=== PATIENT | male | born 1970 | race Two or more races ===

== ENCOUNTER 2019-02-05 00:17 | Emergency (ER) | payer MEDICARE ==
[~2019-02-05] VITALS: Ht 180.3 cm; Wt 112.9 kg
--- NOTE | 2019-02-05 00:50 | NUR ---
BIBS WALKED IN TO ER, TO ER BED 11. AAOX4. NO RESP DISTRESS NOTED. AMBULATORY. CAME DEPRESSION ANS STATES "I WAS VERY EMOTIONAL, I THOUGHT OF JUMPING OVER THE BRIDGE". PT DENIES HI. PT CAME IN SEEKING FOR VOLUNTARY ADMISSION TO PSYCHIATRIC INPATIENT. PT IS STRIPPED OFF CLOTHING AND PLACED ON GOWN W/ ALL BELONGINGS AND PLACE IN LOCKER LOCATED IN THE UTILITY ROOM. MD WAS AT BEDSIDE FOR EVAL. ORDER RECEIVED, NOTED AND CARRIED OUT. 1:1 AT BEDSIDE.
[2019-02-05 01:52] LABS: BASOPHILS % (AUTO) 0.5 % (0.0-2.0); EOSINOPHILS % (AUTO) 1.9 % (0.0-6.0); HEMATOCRIT 39 % (39-51); HEMOGLOBIN 13.6 g/dL (13.5-17.5); LYMPHOCYTES # (AUTO) 2.4 /CMM (0.8-4.8); LYMPHOCYTES % (AUTO) 26.9 % (20.0-44.0); MEAN CORPUSCULAR HGB CONC 35 g/dl (31.0-36.0); MEAN CORPUSCULAR VOLUME 92 fL (80-96); MONOCYTES # (AUTO) 0.7 /CMM (0.1-1.30); MONOCYTES % (AUTO) 7.8 % (2.0-12.0); NEUTROPHILS # (AUTO) 5.5 /CMM (1.8-8.9); NEUTROPHILS % (AUTO) 62.9 % (43.0-81.0); PLATELET COUNT (AUTO) 206 /CMM (150-450); WHITE BLOOD COUNT (AUTO) 8.8 K/uL (4.3-11.0)
[2019-02-05 01:58] LABS: APPEARANCE,URINE Clear (CLEAR); BILIRUBIN,URINE Negative (NEGATIVE); BLOOD, URINE Moderate Ery/uL (NEGATIVE); COLOR,URINE Yellow (YELLOW); KETONES,URINE Negative (NEGATIVE); LEUKOCYTE ESTERASE ,URINE Negative (NEGATIVE); NITRITE, URINE Negative (NEGATIVE); PROTEIN,URINE >=300 mg/dl (NEGATIVE); UGLUCOSE Negative (NEGATIVE); UROBILINOGEN,URINE 0.2 EU/dL (0.2)
[2019-02-05 02:03] LABS: CALCIUM, SERUM 9.2 mg/dL (8.5-10.1); CARBON DIOXIDE 28 mmol/L (21-32); CHLORIDE 100 mmol/L (98-107); CREATININE 1.5 mg/dL (0.6-1.3); GLUCOSE 177 mg/dL (74-106); POTASSIUM 4.7 mmol/L (3.5-5.1); SODIUM SERUM 135 mmol/L (136-145); UREA NITROGEN, BLOOD 22 mg/dL (7-18)
[2019-02-05 02:10] LABS: ACETAMINOPHEN 0 ug/ml (10-30); ALANINE AMINOTRANSFERASE 18 U/L (12-78); ALBUMIN 3.6 g/dL (3.4-5.0); ALCOHOL, BLOOD < 3 mg/dL (0-0); ALKALINE PHOSPHATASE 115 U/L (46-116); ASPARTATE AMINOTRANSFERASE 22 U/L (15-37); BILIRUBIN,DIRECT 0.1 mg/dL (0.0-0.2); BILIRUBIN,TOTAL 0.5 mg/dL (0.2-1.0); SALICYLATE 3.6 mg/dL (2.8-20.0); TOTAL PROTEIN, SERUM 7.9 g/dL (6.4-8.2)
[2019-02-05 02:34] LABS: BACTERIA,URINE Few /HPF (None Seen); RBC,URINE 21-50 /HPF (0-2); SQUAMOUS EPITHELIAL CELL,UR Rare /HPF (None Seen)
--- NOTE | 2019-02-05 04:33 | NUR ---
CLINICALS FAXED TO [facility]. AWAITING CALLBACK.
--- NOTE | 2019-02-05 06:04 | NUR ---
pt in bed sleeping comfortable. no distress noted. sitter at bedside
--- NOTE | 2019-02-05 06:44 | NUR ---
ACCEPTED TO [facility]. # FOR REPORT [phone]. UNIT 2
--- NOTE | 2019-02-05 06:49 | NUR ---
[facility] ETA:[id number]
--- NOTE | 2019-02-05 07:31 | NUR ---
REPORT GIVEN TO KORINA RODRIGUEZ FOR [facility] AT [facility] UNIT 2
--- NOTE | 2019-02-05 07:43 | NUR ---
REPORT GIVEN TO EMT TRANSPORT.
[2019-02-05 07:45] VITALS: BP 163/81
== END 2019-02-05 07:44 ==
LOC: ER 00:35
DX: R45.851 Suicidal ideations (principal); I10 Essential (primary) hypertension; E11.9 Type 2 diabetes mellitus without complications; F17.200 Nicotine dependence, unspecified, uncomplicated; F20.9 Schizophrenia, unspecified; Z88.8 Allergy status to other drugs, medicaments and biological substances; Z59.0 Homelessness
CPT/HCPCS: 36415; 80048; 80076; 80305; 80307; 80329; 81001; 85025; 87086; 99285; G0480; 81000-TC

== ENCOUNTER 2019-03-15 20:15 | Emergency (ER) | payer MEDICARE, OTHER ==
[~2019-03-15] VITALS: Ht 180.3 cm; Wt 113.4 kg
--- NOTE | 2019-03-15 21:11 | NUR ---
CALLED PT IN WAITING ROOM. NO RESPONSE.
[2019-03-15 23:20] LABS: APPEARANCE,URINE Clear (CLEAR); BILIRUBIN,URINE Negative (NEGATIVE); BLOOD, URINE Small Ery/uL (NEGATIVE); COLOR,URINE Yellow (YELLOW); KETONES,URINE Negative (NEGATIVE); LEUKOCYTE ESTERASE ,URINE Negative (NEGATIVE); NITRITE, URINE Negative (NEGATIVE); PH,URINE 5.5 (5.0-8.0); PROTEIN,URINE >=300 mg/dl (NEGATIVE); UGLUCOSE Negative (NEGATIVE); UROBILINOGEN,URINE 0.2 EU/dL (0.2)
[2019-03-15 23:25] LABS: BASOPHILS # (AUTO) 0.1 /CMM (0.0-0.2); BASOPHILS % (AUTO) 0.8 % (0.0-2.0); EOSINOPHILS % (AUTO) 1.6 % (0.0-6.0); HEMATOCRIT 37 % (39-51); HEMOGLOBIN 12.6 g/dL (13.5-17.5); LYMPHOCYTES # (AUTO) 2.1 /CMM (0.8-4.8); LYMPHOCYTES % (AUTO) 25.5 % (20.0-44.0); MEAN CORPUSCULAR HGB CONC 35 g/dl (31.0-36.0); MEAN CORPUSCULAR VOLUME 90 fL (80-96); MONOCYTES # (AUTO) 0.5 /CMM (0.1-1.30); MONOCYTES % (AUTO) 6.1 % (2.0-12.0); NEUTROPHILS # (AUTO) 5.4 /CMM (1.8-8.9); PLATELET COUNT (AUTO) 198 /CMM (150-450); RED BLOOD CELL COUNT(AUTO) 4.04 MIL/uL (4.5-6.0); WHITE BLOOD COUNT (AUTO) 8.2 K/uL (4.3-11.0)
[2019-03-15 23:32] LABS: CALCIUM, SERUM 8.7 mg/dL (8.5-10.1); CARBON DIOXIDE 24 mmol/L (21-32); CHLORIDE 103 mmol/L (98-107); CREATININE 1.5 mg/dL (0.6-1.3); GLUCOSE 149 mg/dL (74-106); POTASSIUM 4.4 mmol/L (3.5-5.1); SODIUM SERUM 138 mmol/L (136-145); UREA NITROGEN, BLOOD 28 mg/dL (7-18)
[2019-03-15 23:38] LABS: ALANINE AMINOTRANSFERASE 20 U/L (12-78); ALBUMIN 3.1 g/dL (3.4-5.0); ALCOHOL, BLOOD < 3 mg/dL (0-0); ALKALINE PHOSPHATASE 99 U/L (46-116); ASPARTATE AMINOTRANSFERASE 20 U/L (15-37); BILIRUBIN,DIRECT 0.1 mg/dL (0.0-0.2); BILIRUBIN,TOTAL 0.4 mg/dL (0.2-1.0); SALICYLATE 3.8 mg/dL (2.8-20.0); TOTAL PROTEIN, SERUM 6.9 g/dL (6.4-8.2)
[2019-03-16] LABS: ACETAMINOPHEN 0 ug/ml (10-30)
[2019-03-16 00:01] LABS: BACTERIA,URINE None seen /HPF (None Seen); SQUAMOUS EPITHELIAL CELL,UR Few /HPF (None Seen); WBC,URINE 0-2 /HPF (0-3)
[2019-03-16] MEDS ORDERED: OLANZAPINE 10 MG VIAL IM ONE ×2 (00:07→00:30)
[2019-03-16] MEDS ORDERED: OLANZAPINE 5 MG TABLET ONE (00:12)
[2019-03-16] MEDS ORDERED: OLANZAPINE 5 MG TABLET PO ONE (00:30)
--- NOTE | 2019-03-16 08:04 | NUR ---
patient in bed, awake, sitter at bedside, not in distress, calm at this time. Will continue to monitor accordingly.
--- NOTE | 2019-03-16 08:04 | NUR ---
breakfast tray provided to patient.
--- NOTE | 2019-03-16 08:09 | NUR ---
[facility] social service at bedside for eval.
--- NOTE | 2019-03-16 08:16 | NUR ---
CALLED NURSING SUP FOR TAP CARD.
--- NOTE | 2019-03-16 08:45 | NUR ---
Social service consult requested by MD for homelessness. Per MD notes and chart review, pt is a 48-year-old male with history of schizophrenia, bipolar disorder, not taking medications, and presented with increased depressive symptoms, and hearing voices. [employer]RATION LABORATORY TECHNICIAN met with the pt bedside. pt is alert and oriented x 4. Pt is cooperative with CAL[employer]RATION LABORATORY TECHNICIAN. Pt appears unkempt and disheveled. Pt states he has been homeless since 2015. Pt has been living in the streets of [facility]. Pt receives $650 in SSI per month and $150 in Food stamps. Pt reports to having a psychiatric diagnosis of Schizoaffective Disorder. Pt is non-compliant with his medications. Pt is currently denying suicidal and homicidal ideations and visual hallucinationsn at this time. Pt. states, at times he has auditory hallucinations. Pt was receiving mental health services through [facility] but stopped going there, stating, " they were not helping me." CALIBRATION LABORATORY TECHNICIAN encouraged pt to go back to [facility] for ongoing mental health services. CALIBRATION LABORATORY TECHNICIAN provided active listening and supportive counseling. CALIBRATION LABORATORY TECHNICIAN also informed pt about the [facility] chcf program and pt is interested. CALIBRATION LABORATORY TECHNICIAN provided pt with the following homeless chcf/ other homeless resources: [facility] [id number] [facility] program list, [facility] located at [address] [facility] ; [facility], [address] [place] ; [facility] [place], [address] [facility] [facility] ; [facility] Homeless Resource Directory which includes food stamps, transitional housing, showers and hot meals etc; Mental Health clinics such as [facility] ; [facility] ; Health clinics;[facility] and Alcohol treatment centers such as [facility], ; [facility]stance [facility] and [facility] . Pt was provided with breakfast and a TAP card. Homeless Patient wavier form was placed in pt's chart for pt to sign upon discharge. Boogie in ED was informed. CALIBRATION LABORATORY TECHNICIAN updated MD regarding pt's discharge plan. No other social service needs are requested at this time.
[2019-03-16 08:56] VITALS: BP 133/77
--- NOTE | 2019-03-16 08:56 | NUR ---
Patient discharged to home in stable condition. Written and verbal after care instructions given. Patient verbalizes understanding of instruction.
== END 2019-03-16 08:55 | disposition home or self-care (01) ==
LOC: ER 20:19
DX: F32.9 Major depressive disorder, single episode, unspecified (principal); R44.0 Auditory hallucinations; I10 Essential (primary) hypertension; E11.9 Type 2 diabetes mellitus without complications; F17.200 Nicotine dependence, unspecified, uncomplicated; Z88.8 Allergy status to other drugs, medicaments and biological substances; Z59.0 Homelessness
CPT/HCPCS: 36415; 80048; 80076; 80305; 80307; 80329; 81001; 85025; 99284; G0480; J3490; 81000-TC